=== PATIENT | female | born 1965 | race Caucasian/White ===

== ENCOUNTER → 2016-08-10 | Outpatient (CLI) | payer BC, OTHER ==
[~2016-08-10] MED LIST: CLON0.5T3 PO; HYDR-5688 PO; LISI-461 PO; MIRT15TA3 PO; ZOLP5TAB6 PO
--- NOTE | 2016-08-10 10:21 | DIAGNOSTIC IMAGING REPORT ---
LEFT KNEE 2 VIEWS CLINICAL HISTORY: Left knee pain. FINDINGS: AP and lateral views of the left knee are obtained. No prior studies are available for comparison at the time of dictation. The skeletal structures are well mineralized. No fracture is seen. The joint spaces are well-maintained. A calcified fabella is incidentally noted. No joint effusion is identified. The overlying soft tissues are within normal limits. IMPRESSION: No acute bony abnormality is seen in the left knee. Electronically signed by: Cachorro Christina M.D. 08/10/2016 10:20 AM Dictated Date/Time: 08/10/2016 10:19 AM
== END | disposition home or self-care (01) ==
LOC: C.RAD1850 09:46
PROVIDERS: ATTEND Family Medicine
DX: M25.562 Pain in left knee (principal)

== ENCOUNTER 2017-03-12 10:31 | Emergency (ER) | payer BC, OTHER ==
[~2017-03-12] VITALS: Ht 165.1 cm; Wt 61.0 kg
[~2017-03-12 10:31] MED LIST changes: -HYDR-5688 PO
[2017-03-12 10:39] VITALS: TEMP 36.5; O2SAT 96; Ht 165.1 cm; Wt 61.0 kg
[2017-03-12] MEDS ORDERED: HYDROCODONE/ACETAMOPHEN 5/325MG TAB PO STA (10:56)
--- NOTE | 2017-03-12 11:27 | DIAGNOSTIC IMAGING REPORT ---
LEFT KNEE 1 OR 2 VIEWS ROUTINE CLINICAL HISTORY: Left knee pain and swelling status post trauma COMPARISON: None. DISCUSSION: No acute fractures or dislocations are visualized. There are mild osteoarthritic changes. There is a new suprapatellar joint effusion. IMPRESSION: New suprapatellar joint effusion. No fractures identified. Electronically signed by: Mukund Smith M.D. 03/12/2017 11:25 AM Dictated Date/Time: 03/12/2017 11:24 AM
--- NOTE | 2017-03-12 11:55 | EMERGENCY ROOM VISIT NOTE ---
ED Visit Note First contact with patient: 10:51 CHIEF COMPLAINT: Left Knee injury HISTORY OF PRESENT ILLNESS: This 51-year-old female presents the ER with chief complaint of left knee pain. The patient states that she was jumping very high on a trampoline last night and it was wet and she slipped and her left lower leg went out laterally and since that time she has severe pain on the medial aspect of her knee. The patient didn't apply weight onto the knee last night but it was very painful. Today she has not been able to bear weight. The patient denies any numbness and tingling of the lower leg. She denies any hip or ankle pain. The patient states that she used to run marathons and had problems with the left knee but never was seen by orthopedics. REVIEW OF SYSTEMS: 6 system review was performed and was negative unless stated otherwise in history of present illness. PMH: The patient is healthy; hypertension, breast augmentation SOCIAL HISTORY: Patient lives with her . The patient denies any tobacco use but admits to occasional alcohol use. PHYSICAL EXAM: Vital Signs: Were reviewed Reviewed Nurse's notes. GENERAL: 51- year-old white female appears uncomfortable secondary to knee pain. MENTAL STATUS: Alert, oriented, and cooperative. LEFT KNEE: Limited exam secondary to patient's pain. The patient has severe guarding when trying to palpate the medial aspect of the knee. Lateral aspect is nontender. Limited range of motion secondary to pain. Unable to evaluate for ligamentous instability. EMERGENCY DEPARTMENT COURSE: The patient was evaluated. The patient was given [place] 5/325 mg 2 tablets by mouth for pain. X-ray of the left knee was ordered and interpreted by the radiologist and myself. DIAGNOSTICS:LEFT KNEE 1 OR 2 VIEWS ROUTINE CLINICAL HISTORY: Left knee pain and swelling status post trauma COMPARISON: None. DISCUSSION: No acute fractures or dislocations are visualized. There are mild osteoarthritic changes. There is a new suprapatellar joint effusion. IMPRESSION: New suprapatellar joint effusion. No fractures identified. Electronically signed by: Mukund Smith M.D. 03/12/2017 11:25 AM The patient was informed of the findings. The patient was placed in a knee brace and given crutches. The patient was discharged home in stable condition. DIAGNOSIS: Left knee injury DISCHARGE INSTRUCTIONS: Knee immobilizer and use crutches for ambulation for 3 - 5 days until the pain subsides, ibuprofen, 600 mg every 6 hours if needed for pain. Take [place] as needed for more severe pain. Do not drive while taking the [place]. Ice to and elevation to the knee frequently for the next 24 hours. Stay off the leg as much as possible and see your physician or orthopedics in 4 or 5 days if you are not improving. Problem List Surgical Problems: (1) H/O breast augmentation Status: Resolved (2) H/O tubal ligation Status: Resolved (3) S/P endometrial ablation Status: Resolved Current/Historical Medications Scheduled Lisinopril (Zestril), 10 MG PO QAM Mirtazapine (Remeron), 15 MG PO HS Scheduled PRN Clonazepam (Klonopin), 0.5 MG PO Q12 PRN for Anxiety Zolpidem Tartrate (Zolpidem Tartrate), 5 MG PO HS PRN for Sleep Allergies Coded Allergies: No Known Allergies (Verified , 03/12/17) Vital Signs Date Time Temp Pulse Resp B/P (MAP) Pulse Ox O2 Delivery O2 Flow Rate FiO2 03/12/17 10:39 36.5 88 20 156/107 96 Room Air Medications Administered Medications (Trade) Dose Ordered Sig/Rhoda Route Start Time Stop Time Status Last Admin Dose Admin Acetaminophen/ Hydrocodone Bitart ([place] 5/325 Tab) 2 tab NOW STAT PO 03/12/17 10:56 03/12/17 10:58 DC 03/12/17 11:26 2 TAB Departure Information Referrals Hannah Hernandez MD (PCP) Patient Instructions My [facility]
[2017-03-12] MEDS ORDERED: HYDR-5688 PO (11:57)
[2017-03-12 12:12] VITALS: BP 126/82; PULSE 72
== END 2017-03-12 12:13 | disposition home or self-care (01) ==
LOC: C.EDB 10:34 → C.EDD 12:13
DX: S89.92XA Unspecified injury of left lower leg, initial encounter (principal); W01.0XXA Fall on same level from slipping, tripping and stumbling without subsequent striking against object, initial encounter; Y92.89 Other specified places as the place of occurrence of the external cause; Y93.44 Activity, trampolining; I10 Essential (primary) hypertension; Z79.899 Other long term (current) drug therapy

== ENCOUNTER → 2017-03-22 | Outpatient (CLI) | payer BC, OTHER ==
[~2017-03-22] MED LIST changes: +HYDR-5688 PO
--- NOTE | 2017-03-22 12:18 | DIAGNOSTIC IMAGING REPORT ---
L LOWER EXT JOINT WITHOUT CLINICAL HISTORY: 51 years-old Female with M25.562 Left knee painM25.462 Swelling of left knee [id number]. Patient presents with acute left-sided knee pain status post fall on a trampoline. Patient now reports pain and swelling. COMPARISON: Left knee radiographs 03/12/2017 TECHNIQUE: Multiplanar, multisequence MRI of the left knee was performed without intravenous contrast. FINDINGS: MENISCI: There is a complex tear of the posterior horn and posterior junction medial meniscus extending into the meniscal body as seen on images 6 through 9 of the sagittal PD series. No definite extension into the meniscal root identified. The tear extends to both the superior and inferior articular surfaces of the posterior horn. No displaced fragment or parameniscal cyst. There is mild associated reactive edema. There is a moderate-sized radial tear of the posterior horn lateral meniscus as seen on image 17 of series 10 and image 18 of series 5. No definite displaced fragment or parameniscal cyst. CRUCIATE LIGAMENTS: The anterior and posterior cruciate ligaments are normal in signal, morphology and course. COLLATERAL LIGAMENTS: The popliteus tendon, biceps femoris tendon, fibular collateral ligament and iliotibial band are intact. The superficial and deep components of the medial collateral ligament are intact. EXTENSOR MECHANISM: The quadriceps and patellar tendons are intact. There is mildly increased T2 signal involving the proximal patellar tendon suggesting tendinosis. Note is made of a medial patellar plica as seen on image 15 of series 3. The medial and lateral patellar retinacula are intact. KNEE JOINT: There is a moderate to large joint effusion with synovitis. Mild tricompartmental joint space narrowing with marginal spurring and mostly low-grade chondromalacia is noted. No high-grade chondral loss or osteochondral defects identified. BONE MARROW: There is an acute impaction fracture of the posterior lateral aspect of the lateral tibial plateau, nicely seen on image 19 of the coronal T1 series and coronal PD series. There is associated mild reactive soft tissue edema within this distribution. Additional mild bone marrow edema seen involving the posterior aspect of the medial tibial plateau without definite impaction fracture identified suggesting bone marrow contusion. Distal femur and fibula are unremarkable. SOFT TISSUES: There is mild degree of soft tissue swelling about the knee, likely reactive. IMPRESSION: 1. Acute nondisplaced impaction fracture of the posterior lateral aspect of the lateral tibial plateau with associated reactive soft tissue swelling and moderate to large joint effusion with synovitis. Mild bone marrow edema within the posterior aspect of the medial tibial plateau is also noted suggesting bone marrow contusion. 2. Acute moderate radial tear of the posterior horn lateral meniscus. 3. Complex tear of the posterior horn, posterior junction and body medial meniscus 4. Mild tricompartmental osteoarthritis. 5. Incidental note is made of mild patellar tendinosis and a medial patellar plica. The above report was generated using voice recognition software. It may contain grammatical, syntax or spelling errors. Electronically signed by: Norris Swan M.D. 03/22/2017 12:16 PM Dictated Date/Time: 03/22/2017 12:04 PM
[2017-03-22 13:47] LABS: BLOOD UREA NITROGEN 13 mg/dl (7-18); BUN/CREATININE RATIO 16.8 (10-20); CALCIUM 9.7 mg/dl (8.5-10.1); CARBON DIOXIDE 28 mmol/L (21-32); CHLORIDE 104 mmol/L (98-107); CREATININE 0.76 mg/dl (0.60-1.20); GLUCOSE 84 mg/dl (70-99); POTASSIUM 3.8 mmol/L (3.5-5.1); SODIUM 139 mmol/L (136-145)
== END | disposition home or self-care (01) ==
LOC: C.MRI 10:29
PROVIDERS: ATTEND Neuromusculoskeletal Medicine & OMM
DX: S89.92XD Unspecified injury of left lower leg, subsequent encounter (principal); X58.XXXD Exposure to other specified factors, subsequent encounter; M25.562 Pain in left knee; M25.462 Effusion, left knee; S82.125A Nondisplaced fracture of lateral condyle of left tibia, initial encounter for closed fracture; S83.282A Other tear of lateral meniscus, current injury, left knee, initial encounter; S83.232A Complex tear of medial meniscus, current injury, left knee, initial encounter; X58.XXXA Exposure to other specified factors, initial encounter

== ENCOUNTER → 2017-04-19 | Outpatient (CLI) | payer BC, OTHER | END | disposition home or self-care (01) | LOC: C.CPL 18:36 | PROVIDERS: ATTEND Orthopaedic Surgery | DX: S83.242D Other tear of medial meniscus, current injury, left knee, subsequent encounter (principal); X58.XXXD Exposure to other specified factors, subsequent encounter ==

== ENCOUNTER 2017-09-11 17:51 | Emergency (ER) | payer BC, OTHER ==
[~2017-09-11] VITALS: Ht 165.1 cm; Wt 67.4 kg
[2017-09-11 17:54] VITALS: TEMP 36.5; Ht 165.1 cm; Wt 67.4 kg
[2017-09-11] MEDS ORDERED: SODIUM CHLORIDE 0.9% 1000ML 1,000 ML IV STA (18:13)
[2017-09-11] MEDS ORDERED: KETOROLAC TROMETHAMINE 30 MG/ML VIAL IV STA (18:13)
--- NOTE | 2017-09-11 18:15 | EMERGENCY ROOM VISIT NOTE ---
History Report prepared by Stefani: Lissa Alvarez Under the Supervision of: Dr. Jesus Rodgers M.D. First contact with patient: 18:01 Chief Complaint: OTHER COMPLAINT Stated Complaint: WEAK,YAWNING,THROAT,COUGH,FEVER,MUCAS,CANT SWOLLOW History of Present Illness The patient is a 51 year old female who presents to the Emergency Room with complaints of persistent sore throat for two weeks. She states that her grandson recently had strep throat, influenza, and a staph infection three weeks ago, though he is better and returned home one week ago from hospitalization in [place]. She notes her daughter recently came home with mononucleosis. She states that she has been dealing with a cough for two weeks, though she has recently developed a fever and increased tiredness. She denies seeing her PCP for her symptoms. She states that she is normally active, though she cannot sleep at night due to coughing fits. She notes she lost her voice for five days. She has tried Mucinex. She denies any post nasal drip. She notes a sore throat and can only eat popsicles. She has tried Codie-[place] plus. She denies any enlarged lymph nodes. She denies any chest pain, though reports pain with her cough. She denies any abdominal johnson, rash, headache, nausea, or vomiting. She regularly takes Clonazepam and an Ambien. She takes Lisinopril for her blood pressure. She states that she had all of her childhood vaccinations. She has a history of ACL replacement in April. Source of History: patient Onset: two weeks Position: throat Quality: other (sore) Timing: other (persistent) Associated Symptoms: + fevers, + cough, No chest pain, No nausea, No vomiting, No abdominal pain, No rash Note: She notes increased tiredness. She denies any post nasal drip or enlarged lymph nodes. Review of Systems See HPI for pertinent positives & negatives. A total of 10 systems reviewed and were otherwise negative. Past Medical & Surgical Medical Problems: (1) Acute diverticulitis (2) Rectal bleeding Surgical Problems: (1) H/O breast augmentation (2) H/O tubal ligation (3) S/P ACL repair (4) S/P endometrial ablation Old medical records were reviewed. Nurse's notes were reviewed and I agree with. Family History Diabetes mellitus FHx: cancer Hypertension Social History Smoking Status: Former Smoker Alcohol Use: heavy (5/week) Drug Use: none Marital Status: Housing Status: lives with family Occupation Status: employed Current/Historical Medications Scheduled Amoxicillin & Pot Clavulanate (Augmentin 875-125 mg), 875 MG PO BID Bupropion HCl (Bupropion HCl Sr), 150 MG PO BID Lisinopril (Zestril), 10 MG PO QAM Prednisone (Prednisone), 50 MG PO DAILY Scheduled PRN Clonazepam (Klonopin), 0.5 MG PO Q12 PRN for Anxiety Zolpidem Tartrate (Zolpidem Tartrate), 5 MG PO HS PRN for Sleep Allergies Coded Allergies: No Known Allergies (Verified , 09/11/17) Physical Exam Vital Signs Date Time Temp Pulse Resp B/P (MAP) Pulse Ox O2 Delivery O2 Flow Rate FiO2 09/11/17 20:30 73 148/97 96 Room Air 09/11/17 19:31 144/96 09/11/17 19:31 144/96 09/11/17 19:30 77 18 97 Room Air 09/11/17 19:01 143/106 09/11/17 19:00 74 97 09/11/17 18:55 68 98 Room Air 09/11/17 18:52 176/110 09/11/17 17:54 36.5 109 18 /178 95 Room Air Physical Exam General: Mildly-ill appearing middle-aged female in no acute distress. Speaking and swallowing without difficulty, no drooling. HEENT: Normal cephalic atraumatic. Pupils are equal round and reactive to light. Extraocular movements are intact. Oropharynx is pink with moist mucous membranes. No swelling of the mouth lips or tongue. No tonsillar enlargement or exudate, floor of mouth is soft. Neck: Supple with a midline trachea. No meningeal signs or stiffness, no JVD or bruits. No Stridor. Chest: Clear to auscultation bilaterally. No wheezes or rhonchi. No increased work of breathing. Heart: regular rate and rhythm. Abdomen: Soft nontender, nondistended without rebound guarding or rigidity. Extremities: No cyanosis clubbing or edema. No calf tenderness or assymetry Spine/Back. Non tender to palpation. No CVA tenderness Skin: Good turgor without rashes. Neurologic exam: Cranial nerves two through 12 are intact. Motor and sensation are intact and symmetrical throughout. Medical Decision & Procedures ER Provider Diagnostic Interpretation: Chest x-ray per my interpretation reveals no pneumothorax, failure, or infiltrate. Radiology results as stated below per radiologist interpretation: CHEST ONE VIEW PORTABLE HISTORY: 51 years-old Female CHEST PAIN acute atypical chest pain COMPARISON: None available TECHNIQUE: Portable AP view of the chest FINDINGS: Cardiomediastinal and hilar silhouettes are within normal limits. Linear subsegmental left basilar opacities are noted suggesting atelectasis. No pneumothorax, pleural effusion, lobar airspace consolidation or overt pulmonary edema. The bones of the chest appear grossly intact. IMPRESSION: Subsegmental left basilar atelectasis without acute process. The above report was generated using voice recognition software. It may contain grammatical, syntax or spelling errors. Electronically signed by: Norris Swan M.D. 09/11/2017 6:59 PM Dictated Date/Time: 09/11/2017 6:58 PM SOFT TISSUE NECK WITH HISTORY: 51 years-old Female eval for abcess, epiglottis acute dysphasia and fever with concern for possible peritonsillar abscess COMPARISON: None available TECHNIQUE: Multiple axial CT images of the soft tissues of the neck were obtained following the intravenous administration of 117 mL Optiray 320 IV contrast. A dose lowering technique was used consistent with the principals of ALARA. FINDINGS: The nasopharynx, oropharynx and hypopharynx are patent. The epiglottis and aryepiglottic folds are unremarkable. The vallecula and piriform sinuses are also within normal limits. The glottis and subglottic airway are unremarkable. Airway appears patent. Evaluation of the oral pharynx is limited secondary to streak artifact from dental amalgam hardware. No peritonsillar abscess. The adenoid, lingual and palatine tonsils do not appear to be enlarged. Multiple bilateral tonsilliths are noted. Thyroid is homogeneous. Submandibular and parotid glands are unremarkable. No pathologic adenopathy identified. The orbits and imaged intracranial structures appear to be within normal limits. Minimal atherosclerosis of the left carotid bulb. Imaged lung apices appear clear. Mild biapical pleural-parenchymal scarring. Mastoid air cells and middle ear cavities are clear. Mild mucosal thickening of the ethmoid air cells, inferior frontal sinuses, bilateral maxillary and sphenoid sinuses. No acute facial bone fracture identified. Mostly mild multilevel changes about the cervical spine. IMPRESSION: 1. Limited evaluation of the oropharynx secondary to streak artifact from dental amalgam hardware. There are multiple bilateral palatine tonsilliths without evidence of peritonsillar abscess or pharyngeal narrowing. 2. No pathologic adenopathy. 3. Mild paranasal sinus disease. The above report was generated using voice recognition software. It may contain grammatical, syntax or spelling errors. Electronically signed by: Norris Swan M.D. 09/11/2017 8:22 PM Dictated Date/Time: 09/11/2017 8:14 PM Laboratory Results 09/11/17 18:30 Red Blood Count 4.21, Mean Corpuscular Volume 91.7, Mean Corpuscular Hemoglobin 32.5, Mean Corpuscular Hemoglobin Concent 35.5, Mean Platelet Volume 9.3, Neutrophils (%) (Auto) 75.0, Lymphocytes (%) (Auto) 18.3, Monocytes (%) (Auto) 4.7, Eosinophils (%) (Auto) 1.8, Basophils (%) (Auto) 0.1, Neutrophils # (Auto) 6.41, Lymphocytes # (Auto) 1.56, Monocytes # (Auto) 0.40, Eosinophils # (Auto) 0.15, Basophils # (Auto) 0.01 09/11/17 18:30 Test 09/11/17 18:23 09/11/17 18:30 Influenza Type A Antigen Neg for Influ A (NEG) Influenza Type B Antigen Neg for Influ B (NEG) White Blood Count 8.54 K/uL (4.8-10.8) Red Blood Count 4.21 M/uL (4.2-5.4) Hemoglobin 13.7 g/dL (12.0-16.0) Hematocrit 38.6 % (37-47) Mean Corpuscular Volume 91.7 fL (80-100) Mean Corpuscular Hemoglobin 32.5 pg (25-34) Mean Corpuscular Hemoglobin Concent 35.5 g/dl (32-36) Platelet Count 262 K/uL (130-400) Mean Platelet Volume 9.3 fL (7.4-10.4) Neutrophils (%) (Auto) 75.0 % Lymphocytes (%) (Auto) 18.3 % Monocytes (%) (Auto) 4.7 % Eosinophils (%) (Auto) 1.8 % Basophils (%) (Auto) 0.1 % Neutrophils # (Auto) 6.41 K/uL (1.4-6.5) Lymphocytes # (Auto) 1.56 K/uL (1.2-3.4) Monocytes # (Auto) 0.40 K/uL (0.11-0.59) Eosinophils # (Auto) 0.15 K/uL (0-0.5) Basophils # (Auto) 0.01 K/uL (0-0.2) RDW Standard Deviation 42.8 fL (36.4-46.3) RDW Coefficient of Variation 12.7 % (11.5-14.5) Immature Granulocyte % (Auto) 0.1 % Immature Granulocyte # (Auto) 0.01 K/uL (0.00-0.02) Anion Gap 6.0 mmol/L (3-11) Est Creatinine Clear Calc Drug Dose 66.5 ml/min Estimated GFR () 86.4 Estimated GFR (Non- 74.5 BUN/Creatinine Ratio 19.4 (10-20) Calcium Level 9.1 mg/dl (8.5-10.1) Total Bilirubin 0.3 mg/dl (0.2-1) Direct Bilirubin < 0.1 mg/dl (0-0.2) Aspartate Amino Transf (AST/SGOT) 17 U/L (15-37) Alanine Aminotransferase (ALT/SGPT) 23 U/L (12-78) Alkaline Phosphatase 71 U/L (45-117) Total Protein 8.1 gm/dl (6.4-8.2) Albumin 4.0 gm/dl (3.4-5.0) Lipase 150 U/L (73-393) Thyroid Stimulating Hormone (TSH) 2.420 uIu/ml (0.300-4.500) Monoscreen NEG (NEG) Laboratory studies as stated above per my review. Medications Administered Medications (Trade) Dose Ordered Sig/Rhoda Route Start Time Stop Time Status Last Admin Dose Admin Sodium Chloride 1,000 ml @ 999 mls/hr Q1H1M STAT IV 09/11/17 18:13 09/11/17 19:13 DC 09/11/17 18:13 999 MLS/HR Ketorolac Tromethamine (Toradol Inj) 30 mg NOW STAT IV 09/11/17 18:13 09/11/17 18:15 DC 09/11/17 18:49 30 MG Prednisone (PredniSONE TAB) 60 mg NOW STAT PO 09/11/17 20:46 09/11/17 20:48 DC 09/11/17 20:54 60 MG Amoxicillin/ Clavulanate Potassium (Augmentin 875MG Home Pack) 1 homepack UD ONCE PO 09/11/17 21:00 09/11/17 21:01 DC 09/11/17 20:55 1 HOMEPACK ECG Per My Interpretation Indication: weakness Rate (beats per minute): 67 Rhythm: normal sinus Findings: nonspecific-ST abn, no acute ischemic change, no ectopy Change: no significant change (when compared to 04/19/2017) ED Course 1801: Past medical records reviewed. The patient was evaluated in room B2, and a complete history and physical examination were performed. 1812: Ordered Toradol 30 mg IV and Sodium Chloride 1,000 ml @ 999 mls/hr IV 1857: I reassessed the patient at this time. She is comfortable. 1930: I reassessed the patient at this time. She agreed to have a CT scan. 2041: I reassessed the patient at this time. She is feeling better and resting comfortably. I discussed the results and treatment plan with the patient. I answered all pertaining questions that she had. She expressed understanding and verbalized agreement. The patient will be discharged home. 2045: Ordered Prednisone 60 mg PO 2100: Ordered Augmentin 1 homepack PO Medical Decision Differentials include, but are not limited to: strep throat, pharyngitis, mononucleosis, viral illness, PNA, dehydration, and electrolyte or metabolic abnormality. This patient comes in as described above.This She was placed in room B2. She has been feeling tired for about 3 weeks. She has also had a cough at night and a sore throat. She She has been feeling tired for about 3 weeks. She's also had a cough at night and a sore throat. She does not appear to be toxic and on exam she is not drooling. she has no stridor she is speaking and swallowing without difficulty. She does not appear to be toxic on exam she is not drooling and she has no stridor. she is speaking and swallowing without difficulty. The posterior oropharynx is wide open there is no tonsillar exudates or enlargement. No evidence to suggest peritonsillar abscess or Raj 's angina. The floor the mouth is soft. The neck is supple without meningeal signs or stiffness.. No evidence to suggest peritonsillar abscess or Raj's angina. The floor the mouth is soft. The neck is supple without meningeal signs or stiffness. IV access established was hydrated 1 L normal saline bolus. She was given Toradol 30 mg IV . She declines any medication allergies. Multiple blood testing was obtained. I also swabbed her for flu and strep. [place] spot was also obtained. She was reassessed from frequently. White count was not elevated. She has no fever. Both go against infection. Strep was negative. Chest x-ray does not show congestive heart failure, pneumonia, or pneumothorax. Monospot was negative. She has no white count or fever to suggest infection. Electrolytes were normal. Posterior pharynx looks fine in light of this, I did a CT of her neck to rule out abscess or epiglottitis or other etiology and this was also negative. She was reassured. I will start her on antibiotics for pharyngitis type picture Augmentin 875 mg twice a day. I also will start on prednisone for steroid coverage with the first dose given here as well as prescription. I encouraged her to follow-up with her regular doctor return to the ER if: Worsening symptoms, fever chills, any new problems or concerns. She is happy to plan discharged karie home. Medication Reconcilliation Current Medication List: was personally reviewed by me Blood Pressure Screening Patient's blood pressure: Elevated blood pressure Blood pressure disposition: Elevated BP felt to be situational Impression Primary Impression: Pharyngitis Additional Impression: Viral illness Scribe Attestation The scribe's documentation has been prepared under my direction and personally reviewed by me in its entirety. I confirm that the note above accurately reflects all work, treatment, procedures, and medical decision making performed by me. Departure Information Dispostion Home / Self-Care Prescriptions Prednisone (Prednisone) 50 Mg Tab 50 MG PO DAILY, #4 TAB Prov: Jesus Rodgers M.D. 09/11/17 Amoxicillin & Pot Clavulanate (Augmentin 875-125 mg) 1 Tab Tab 875 MG PO BID for 10 Days, #20 TAB Prov: Jesus Rodgers M.D. 09/11/17 Referrals Hannah Hernandez MD (PCP) Forms HOME CARE DOCUMENTATION FORM, IMPORTANT VISIT INFORMATION, WORK / SCHOOL INSTRUCTIONS Patient Instructions My [facility] [place] Additional Instructions Rest. Drink plenty of fluids. Use Augmentin 875 mg twice a dayantibiotic Use ibuprofen 400 mg every 6 hours, take with food Use prednisone 50 mg once a day for the next 4 days Return if: Worsening of symptoms, increasing pain, shortness of breath, not tolerating fluids, any new problems or concerns Follow-up with your doctor in 1-2 days for recheck. Problem Qualifiers
[2017-09-11 18:47] LABS: BASO % 0.1 %; BASO ABS # 0.01 K/uL (0-0.2); EOS % 1.8 %; EOS ABS # 0.15 K/uL (0-0.5); HEMATOCRIT 38.6 % (37-47); HEMOGLOBIN 13.7 g/dL (12.0-16.0); IG# 0.01 K/uL (0.00-0.02); LYMPH % 18.3 %; LYMPH ABS # 1.56 K/uL (1.2-3.4); MEAN CELL VOLUME 91.7 fL (80-100); MEAN CORPUSCULAR HEMOGLOBIN 32.5 pg (25-34); MEAN CORPUSCULAR HGB CONC 35.5 g/dl (32-36); MEAN PLATELET VOLUME 9.3 fL (7.4-10.4); MONO % 4.7 %; NEUT ABS # 6.41 K/uL (1.4-6.5); PLATELET COUNT 262 K/uL (130-400); RED CELL DISTRIBUTION WIDTH CV 12.7 % (11.5-14.5); RED CELL DISTRIBUTION WIDTH SD 42.8 fL (36.4-46.3); WHITE BLOOD COUNT 8.54 K/uL (4.8-10.8)
--- NOTE | 2017-09-11 19:01 | DIAGNOSTIC IMAGING REPORT ---
CHEST ONE VIEW PORTABLE HISTORY: 51 years-old Female CHEST PAIN acute atypical chest pain COMPARISON: None available TECHNIQUE: Portable AP view of the chest FINDINGS: Cardiomediastinal and hilar silhouettes are within normal limits. Linear subsegmental left basilar opacities are noted suggesting atelectasis. No pneumothorax, pleural effusion, lobar airspace consolidation or overt pulmonary edema. The bones of the chest appear grossly intact. IMPRESSION: Subsegmental left basilar atelectasis without acute process. The above report was generated using voice recognition software. It may contain grammatical, syntax or spelling errors. Electronically signed by: Norris Swan M.D. 09/11/2017 6:59 PM Dictated Date/Time: 09/11/2017 6:58 PM
[2017-09-11 19:05] LABS: ALT/SGPT 23 U/L (12-78); BLOOD UREA NITROGEN 17 mg/dl (7-18); CALCIUM 9.1 mg/dl (8.5-10.1); CARBON DIOXIDE 29 mmol/L (21-32); CREATININE 0.89 mg/dl (0.60-1.20); GLUCOSE 83 mg/dl (70-99); LIPASE 150 U/L (73-393); POTASSIUM 3.7 mmol/L (3.5-5.1); SODIUM 137 mmol/L (136-145)
[2017-09-11 19:10] LABS: INFLUENZA B ANTIGEN Neg for Influ B (NEG)
[2017-09-11 19:16] LABS: ALKALINE PHOSPHATASE 71 U/L (45-117); AST/SGOT 17 U/L (15-37); TOTAL PROTEIN 8.1 gm/dl (6.4-8.2)
[2017-09-11] MEDS ORDERED: WLLSR150 PO (19:46)
[2017-09-11] MEDS ORDERED: OPTIRAY 320 IV PRN (20:00)
--- NOTE | 2017-09-11 20:24 | DIAGNOSTIC IMAGING REPORT ---
SOFT TISSUE NECK WITH HISTORY: 51 years-old Female eval for abcess, epiglottis acute dysphasia and fever with concern for possible peritonsillar abscess COMPARISON: None available TECHNIQUE: Multiple axial CT images of the soft tissues of the neck were obtained following the intravenous administration of 117 mL Optiray 320 IV contrast. A dose lowering technique was used consistent with the principals of KURT. FINDINGS: The nasopharynx, oropharynx and hypopharynx are patent. The epiglottis and aryepiglottic folds are unremarkable. The vallecula and piriform sinuses are also within normal limits. The glottis and subglottic airway are unremarkable. Airway appears patent. Evaluation of the oral pharynx is limited secondary to streak artifact from dental amalgam hardware. No peritonsillar abscess. The adenoid, lingual and palatine tonsils do not appear to be enlarged. Multiple bilateral tonsilliths are noted. Thyroid is homogeneous. Submandibular and parotid glands are unremarkable. No pathologic adenopathy identified. The orbits and imaged intracranial structures appear to be within normal limits. Minimal atherosclerosis of the left carotid bulb. Imaged lung apices appear clear. Mild biapical pleural-parenchymal scarring. Mastoid air cells and middle ear cavities are clear. Mild mucosal thickening of the ethmoid air cells, inferior frontal sinuses, bilateral maxillary and sphenoid sinuses. No acute facial bone fracture identified. Mostly mild multilevel changes about the cervical spine. IMPRESSION: 1. Limited evaluation of the oropharynx secondary to streak artifact from dental amalgam hardware. There are multiple bilateral palatine tonsilliths without evidence of peritonsillar abscess or pharyngeal narrowing. 2. No pathologic adenopathy. 3. Mild paranasal sinus disease. The above report was generated using voice recognition software. It may contain grammatical, syntax or spelling errors. Electronically signed by: Norris Swan M.D. 09/11/2017 8:22 PM Dictated Date/Time: 09/11/2017 8:14 PM
[2017-09-11 20:30] VITALS: BP 148/97; PULSE 73; O2SAT 96
[2017-09-11] MEDS ORDERED: PRED50TA PO (20:46)
[2017-09-11] MEDS ORDERED: AMOX875T PO (20:46)
[2017-09-11] MEDS ORDERED: AMOXICIL/CLAVU 875MG HOME PACK PO ONE (21:00)
== END 2017-09-11 20:58 | disposition home or self-care (01) ==
LOC: C.EDB 17:53
DX: J02.9 Acute pharyngitis, unspecified (principal); B34.9 Viral infection, unspecified; Z98.51 Tubal ligation status; Z83.3 Family history of diabetes mellitus; Z82.49 Family history of ischemic heart disease and other diseases of the circulatory system; Z80.9 Family history of malignant neoplasm, unspecified; Z87.891 Personal history of nicotine dependence; Z79.899 Other long term (current) drug therapy

== ENCOUNTER → 2017-09-21 | Outpatient (CLI) | payer BC, OTHER ==
[~2017-09-21] MED LIST changes: +AMOX875T PO; -HYDR-5688 PO; -MIRT15TA3 PO; +PRED50TA PO; +WLLSR150 PO
--- NOTE | 2017-09-22 07:49 | MAMMOGRAPHY REPORT ---
BILATERAL DIGITAL SCREENING MAMMOGRAM TOMOSYNTHESIS WITH CAD: 09/21/2017 CLINICAL HISTORY: Routine screening. Patient has no complaints. TECHNIQUE: Bilateral CC and MLO views of the breasts with and without implant displacement views were obtained. Tomosynthesis was also performed on the implant displaced views. Current study was also evaluated with a Computer Aided Detection (CAD) system. COMPARISON: Comparison is made to exams dated: 06/03/2016 mammogram, 04/23/2015 mammogram, 04/22/2014 mammogram, 03/23/2013 mammogram, 08/19/2009 mammogram, and 11/16/2011 mammogram - [facility]. BREAST COMPOSITION: There are scattered areas of fibroglandular density in both breasts. FINDINGS: Bilateral subpectoral saline implants are intact. No suspicious masses, asymmetries, archi tectural distortion or cluster of microcalcifications identified. IMPRESSION: ACR BI-RADS CATEGORY 1: NEGATIVE There is no mammographic evidence of malignancy. A 1 year screening mammogram is recommended. The pa tient will receive written notification of the results. Approximately 10% of breast cancers are not detected with mammography. A negative mammographic report should not delay biopsy if a clinically suggestive mass is present. Lesly Sanchez M.D. ay/:09/21/2017 16:26:00 Twister Doffer: Andria LOWRY(Anup)(Khadijah), [facility] letter sent: Normal 1/2 BI-RADS Code: ACR BI-RADS Category 1: Negative
== END | disposition home or self-care (01) ==
LOC: C.MAMM 15:54
PROVIDERS: ATTEND Family Medicine
DX: Z12.31 Encounter for screening mammogram for malignant neoplasm of breast (principal); Z98.82 Breast implant status